=== PATIENT | male | born 1965 | race Caucasian/White ===

== ENCOUNTER 2020-06-02 09:45 | Emergency (ER) | payer OTHER ==
[2020-06-02 11:07] LABS: BASOPHIL 0.4 % (0-2); EOSINOPHIL 0.1 % (0-5); HCT 41.2 % (42.0-52.0); HGB 14.1 g/dl (13.2-18.0); LYMPHOCYTE 14.1 % (15-48); MCH 30.1 pg (25.0-31.0); MCHC 34.2 g/dL (32.0-36.0); MONOCYTE 13.6 % (0-12); MPV 9.6 fL (6.0-9.5); NEUTROPHIL 70.7 % (41-80); NRBC 0; PLT 277 K/uL (150-400); RBC 4.68 M/uL (4.70-6.00); RDW 11.8 % (11.5-14.0)
[2020-06-02 11:20] LABS: ALBUMIN 3.3 g/dL (3.4-5.0); BILIRUBIN - TOTAL 0.9 mg/dL (0.2-1.0); BUN/CREAT RATIO (CALC) 21.8 RATIO; CREATININE 0.78 mg/dL (0.67-1.17); GLOBULIN (CALCULATION) 3.8 g/dL; POTASSIUM 3.4 mmol/L (3.5-5.1); TOTAL PROTEIN 7.1 g/dL (6.4-8.2)
[2020-06-02 11:26] LABS: PRO-BNP 37 pg/mL (<125)
[2020-06-02] MEDS ORDERED: LEVAQUIN500 MG PO (13:16)
[2020-06-02] MEDS ORDERED: TESSALON PERLE100 M1 PO (13:16)
== END 2020-06-02 13:26 | disposition home or self-care (01) ==
LOC: FER 09:45
PROVIDERS: Emergency Medicine
DX: U07.1 COVID-19 (principal); J12.82 Pneumonia due to coronavirus disease 2019; R16.1 Splenomegaly, not elsewhere classified; I10 Essential (primary) hypertension; Z87.891 Personal history of nicotine dependence
CPT/HCPCS: 36415; 71045; 71275; 80053; 83880; 84484; 85025; 85379; 93005; Q9967